=== PATIENT | male | born 1995 | race Two or more races ===

== ENCOUNTER → 2020-07-27 | Day surgery (SDC) | payer OTHER ==
[~2020-07-27] MED LIST: FENTANYL CITRATE/PF 100MCG/2 ML INJ ONE; GLYCOPYRROLATE INJ 0.2 MG/ML VIAL ONE; HYOSCYAMINE 0.125 MG TAB ONE; LIDOCAINE HCL 2% LOCAL INJ 5 ML SDV VIAL INJ ONE; MIDAZOLAM HCL 2 MG/2 ML VIAL ONE; PHENYLEPHRINE HCL 1% 10 MG/ML VIAL ONE; PROPOFOL IV EMULSION 10 MG/ML 20 ML VIAL ONE; RISPERIDONE1 MG PO; SERTRALINE HCL50 MG PO
[2020-07-27 11:00] VITALS: BP 107/69
--- NOTE | 2020-07-27 11:40 | Operative Report ---
DATE OF PROCEDURE: 07/27/2020 SURGEON: Vinicius Barcenas MD PROCEDURE: Colonoscopy with polypectomy. INDICATION FOR COLONOSCOPY: Rectal bleeding. MEDICATIONS: The patient was done under MAC, please see anesthesiologist's note. PROCEDURE IN DETAIL: With the patient in the left lateral decubitus position, a flexible fiberoptic Olympus colonoscope was inserted into the rectum with ease and advanced all the way to the cecum. It was then withdrawn slowly. Mucosa overlying the cecum, ascending colon, and transverse colon appeared to be within normal limits. An approximately 3 mm polyp was removed per hot snare polypectomy from the descending colon. The rest of the descending and sigmoid colon appeared to be within normal limits. The rectum also was within normal limits. The scope was then retroflexed into the distal rectum and the area around the dentate line appeared to be within normal limits. The scope was then straightened out, it was subsequently withdrawn, and the patient tolerated the procedure well. IMPRESSION: Descending colon polyp, hot snared. PLAN: Follow up histology. Initiate high-fiber, low-fat diet. Initiate high-fiber supplement. Hydrocortisone acetate suppositories 25 mg b.i.d. x10 days and p.r.n. The patient might benefit from a followup colonoscopy in 5 years. Vinicius Barcenas MD [facility] – [place]/ERYN /[id number]
== END | disposition home or self-care (01) ==
LOC: OR 07:03
PROVIDERS: ATTEND Internal Medicine Gastroenterology
DX: K62.5 Hemorrhage of anus and rectum (principal); K63.5 Polyp of colon; R03.0 Elevated blood-pressure reading, without diagnosis of hypertension; F31.9 Bipolar disorder, unspecified; Z01.812 Encounter for preprocedural laboratory examination; Z20.828 Contact with and (suspected) exposure to other viral communicable diseases; Z68.26 Body mass index [BMI] 26.0-26.9, adult
CPT/HCPCS: 45385; J2001; J2250; J2370; J2704; J3010; U0002; 45378